=== PATIENT | female | born 1975 ===

== ENCOUNTER 2024-12-31 19:02 | Emergency (ER) | payer OTHER ==
[2024-12-31 19:32] VITALS: BP 138/79; PULSE 64; RESP 18; TEMP 98.1; BMI 28.2
[2024-12-31] MEDS ORDERED: ACETAMINOPHEN 500 MG TABLET (FP) ONE (20:12)
[2024-12-31] MEDS ORDERED: LIDOCAINE 4% PATCH TP ONE (20:13)
[2024-12-31] MEDS: ACETAMINOPHEN 500 MG TABLET (FP) PO ONE (20:17)
[2024-12-31] MEDS: LIDOCAINE 5% TOPICAL PATCH TP ONE (20:18)
[2024-12-31] MEDS ORDERED: LIDOCAINE PATCH REMOVAL MC SCH (22:00)
== END 2024-12-31 21:27 | disposition home or self-care (01) ==
LOC: JER 19:02
DX: S00.03XA Contusion of scalp, initial encounter (principal); V49.50XA Passenger injured in collision with unspecified motor vehicles in traffic accident, initial encounter; Y92.410 Unspecified street and highway as the place of occurrence of the external cause
CPT/HCPCS: 70450-TC; 99284-25